=== PATIENT | male | born 1975 | race Caucasian/White ===

== ENCOUNTER 2016-03-01 05:58 | Day surgery (SDC) | payer OTHER ==
[2016-03-01] MEDS ORDERED: Lactated Ringers 1,000 ML IV SCH (06:30)
[2016-03-01] MEDS ORDERED: DIPRIVAN 200 MG/20 ML IV ONE (08:00)
[2016-03-01] MEDS ORDERED: Ketamine HCl 50 MG/ML IV ONE (08:00)
[2016-03-01 08:29] VITALS: O2SAT 98
[2016-03-01 08:34] VITALS: BP 121/74; PULSE 63
--- NOTE | 2016-03-01 10:43 | OP ---
SURGERY DATE/TIME: 03/01/2016 0657 PREOPERATIVE DIAGNOSIS: Gastroesophageal reflux disease. POSTOPERATIVE DIAGNOSIS: Moderate gastritis. PROCEDURE: Esophagogastroduodenoscopy with biopsy. SURGEON: Dr. Adams. ANESTHESIA: Medications were given by the anesthesia department. BRIEF HISTORY: The patient is a 40 year old white male patient presenting now for epigastric pain. The patient reports he had the pain despite taking proton pump inhibitor medication for several weeks. The patient was felt the need to have endoscopic evaluation. He was appraised of the risks of the procedure including the risk of perforation, phlebitis, untoward reaction to medication, bleeding, and missed lesions. The patient verbalized his understanding and desired to have the procedure performed. DESCRIPTION OF PROCEDURE: The patient was given the medications by the anesthesia department. He had continuous pulse oximetry, ECG monitoring, intermittent blood pressure monitoring and tidal CO2 monitoring during the examination. He was placed in the left lateral decubitus position. A bite block was placed and the flexible Olympus gastroscope was used to intubate the oropharynx. A view of the esophagus was developed which appeared to be normal throughout its length. The stomach was entered where normal gastric rugal folds were seen and these distended nicely with insufflation of air. The scope was passed along the greater curvature of the stomach to the antrum. There were patchy areas of erythema but no erosions or ulcerations. The pylorus was encountered and intubated. The duodenum was inspected and found to be normal. The scope is then withdrawn towards the stomach. Again, a retroflex view was obtained of the lesser curvature, fundus and cardia regions of the stomach and these appeared normal. The scope was then redirected towards the gastric antrum and biopsies were obtained to rule out the presence of Helicobacter pylori-type organisms. The scope was then removed from the patient who tolerated the procedure well and was sent back to outpatient recovery in good condition.
== END 2016-03-01 08:20 | disposition home or self-care (01) ==
LOC: SDC 05:58
PROVIDERS: ATTEND Family Medicine
PROC: 0DB68ZX Excision of Stomach, Via Natural or Artificial Opening Endoscopic, Diagnostic (ICD-10-PCS; principal; 2016-03-01)
DX: K29.70 Gastritis, unspecified, without bleeding (principal); K21.9 Gastro-esophageal reflux disease without esophagitis
CPT/HCPCS: 00740; 36415; 88305; 88312; J2704

== ENCOUNTER 2016-08-05 05:54 | Day surgery (SDC) | payer OTHER ==
[2016-08-05] MEDS ORDERED: Lactated Ringers 1,000 ML IV ONE (06:43)
[2016-08-05] MEDS ORDERED: Lactated Ringers 1,000 ML IV SCH (07:00)
[2016-08-05] MEDS ORDERED: DIPRIVAN 200 MG/20 ML IV ONE (08:00)
[2016-08-05] MEDS ORDERED: Ketamine HCl 50 MG/ML IV ONE (08:00)
[2016-08-05] MEDS ORDERED: Versed 2 MG/2 ML Injection IV ONE (08:00)
[2016-08-05] MEDS ORDERED: solu-MEDROL 125 MG IV SCH (08:30)
--- NOTE | 2016-08-05 09:27 | OP ---
SURGERY DATE/TIME: 08/05/2016 0723 PREOPERATIVE DIAGNOSIS: Abdominal pain. POSTOPERATIVE DIAGNOSIS: Crohn's colitis. PROCEDURE: Colonoscopy with biopsy. SURGEON: Dr. Adams. ANESTHESIA: MAC. Medications given by anesthesia department. HISTORY: The patient is a 40 year-old white male patient presenting now for colonoscopic evaluation due to abdominal pain. The patient reports two months ago he had an upper endoscopy which was essentially normal but he persisted to have abdominal pain. He was felt to need to have endoscopic evaluation of the colon. He was appraised of the risks of the procedure including the risk of perforation, phlebitis, untoward reaction to medication, bleeding, and missed lesions. The patient verbalized his understanding and desired to have the procedure performed. DESCRIPTION OF PROCEDURE: The patient was given the medications by the anesthesia department. He had continuous pulse oximetry, ECG monitoring, intermittent blood pressure monitoring and tidal CO2 monitoring during the examination. He was placed in the left lateral decubitus position. A digital rectal examination was performed and revealed normal anal sphincter tone and no masses and normal prostate. The flexible Olympus pediatric colonoscope was used to intubate the rectum. A view of the colon was developed sequentially to the cecum including a short distance into the terminal ileum. Upon insertion and withdrawal, including a retroflex view in the rectum, there was noted a beefy red appearance and small aphthous ulcers in the terminal ileum. The colon appeared to be normal. Biopsies were obtained in the terminal ileum to confirm the presence of inflammatory bowel disease. The scope was removed from the patient who tolerated the procedure well and was sent back to OP recovery in good condition. The prep was noted to be fair.
[2016-08-05 10:07] VITALS: BP 131/71; PULSE 72; O2SAT 98
== END 2016-08-05 09:00 | disposition home or self-care (01) ==
LOC: SDC 05:54 → EDSTATUS 14:27
PROVIDERS: ATTEND Family Medicine
PROC: 0DBB8ZX Excision of Ileum, Via Natural or Artificial Opening Endoscopic, Diagnostic (ICD-10-PCS; principal; 2016-08-05)
DX: K50.10 Crohn's disease of large intestine without complications (principal); K52.89 Other specified noninfective gastroenteritis and colitis
CPT/HCPCS: 00810; 36415; 88305; J2250; J2704; J2930

== ENCOUNTER 2017-06-12 10:54 | Day surgery (SDC) | payer OTHER ==
--- NOTE | 2017-06-12 08:32 | HP ---
DATE OF SURGERY: 06/12/2017 HISTORY OF PRESENT ILLNESS: The patient is a 41 year-old with history of benign biopsy of the pancreas x2, question of microlithiasis according to Dr. Aguilar. Given these findings recommended cholecystectomy. He has had some nausea, vomiting, dry heaves worse with spicy foods and some epigastric discomfort some loose stools after eating at times. PAST MEDICAL HISTORY: The patient denied any chronic illnesses. PAST SURGICAL HISTORY: Both shoulder surgeries, left hand surgery also right little finger surgery. MEDICATIONS: None on a regular basis. ALLERGIES: NKDA. NO SENSITIVIES. FAMILY HISTORY: Negative for inflammatory bowel disease or sprue. SOCIAL HISTORY: No smoking or alcohol abuse. REVIEW OF SYSTEMS: Twelve systems reviewed per admission assessment. No chest pain or palpitations other systems negative or noncontributory as above and per preadmission questionnaire. PHYSICAL EXAMINATION: GENERAL: No acute distress. HEENT: Sclerae nonicteric. NECK: No JVD. CHEST: Clear to auscultation. CVS: Regular rate and rhythm. ABDOMEN: Soft, mild tenderness epigastrium. No peritoneal signs. EXTREMITIES: No significant edema. NEURO: Alert, oriented, moving extremities symmetrically. No gross motor deficits noted. IMPRESSION: Question microlithiasis, question symptomatic biliary colic. Dr. Aguilar has done endoscopic ultrasound, biopsy of pancreas in the past. He recommends cholecystectomy. Risks and benefits explained in detail to the patient including but not limited to bleeding or infection, risk of trocar injury or hernia, small risk of bowel, bladder or blood vessel injury, small risk of bile leak, bile duct injury, retained stone or sludge possibly requiring further procedure either open or ERCP, general risk of anesthesia, deep venous thrombosis, pulmonary embolism, pneumonia, perioperative risk of aches, pains, bloating, constipation and/or loose stools possibly even chronic in nature. He also understands that there is possibility that this procedure may not improve his symptoms that he may need further work up, testing or treatment per Dr. Aguilar. He understands and agrees to the planned procedure, will proceed with laparoscopic cholecystectomy with possible open as an outpatient.
[~2017-06-12 10:54] MED LIST: Lactated Ringers 1,000 ML IV ONE; Lactated Ringers 1,000 ML IV SCH; Sensorcaine 0.25% 10 ML ONE
[2017-06-12] MEDS ORDERED: TORAdol 30 mg Injection IJ ONE (10:55)
[2017-06-12] MEDS ORDERED: SUBLIMAZE 100 MCG/2 ML IV ONE (10:55)
[2017-06-12] MEDS ORDERED: DIPRIVAN 200 MG/20 ML IV ONE (10:55)
[2017-06-12] MEDS ORDERED: Versed 2 MG/2 ML Injection IV ONE (10:55)
[2017-06-12] MEDS ORDERED: BRIDION 200MG/2ML IV ONE (10:55)
[2017-06-12] MEDS ORDERED: Zofran 4 MG/2 ML VIAL IV ONE (10:55)
[2017-06-12] MEDS ORDERED: Zemuron 100 MG/10 ML IJ ONE (10:55)
[2017-06-12] MEDS ORDERED: Decadron 4 MG INJ IV ONE (10:55)
[2017-06-12] MEDS ORDERED: SUBLIMAZE 250 MCG/5 ML IJ ONE (10:55)
[2017-06-12] MEDS ORDERED: MEFOXIN 2 GM PREMIX** 2 GM/50 ML ML IV SCH (11:00)
[2017-06-12 15:45] VITALS: O2SAT 96
[2017-06-12 15:52] VITALS: BP 134/64; PULSE 67
--- NOTE | 2017-06-13 08:21 | OP ---
SURGERY DATE/TIME: 06/12/2017 1305 PREOPERATIVE DIAGNOSIS: Symptomatic biliary colic, question of microlithiasis by Dr. Aguilar with endoscopic ultrasound. POSTOPERATIVE DIAGNOSIS: Symptomatic biliary colic, question of microlithiasis by Dr. Aguilar with endoscopic ultrasound. Mild chronic cholecystitis. PROCEDURE: Laparoscopic cholecystectomy. SURGEON: Dr. Vaibhav Matta. PROGRAMMING DEVELOPMENT PROJECT MANAGER: Rey Shankar, Medical Student III. ANESTHESIA: General. ESTIMATED BLOOD LOSS: Minimal. INDICATIONS: As noted above. Risks and benefits explained in detail but not limited to and consent obtained. DESCRIPTION OF PROCEDURE AND FINDINGS: The patient was taken to the OR. General anesthesia induced. Abdomen prepped and draped in the usual sterile fashion. After official time out and no disagreement with planned procedure, a transverse incision made at the supraumbilical area. Fascia grasped and pulled upward. Veress needle inserted and tested with saline. Pneumoperitoneum accomplished insufflating opening pressure of 0-15. An 11 mm bladeless port and camera inserted without difficulty followed by two - 5 mm right upper quadrant ports and 5 mm epigastric port. The gallbladder had some mild chronic inflammatory reaction. Dissecting carried posterior, lateral to anterior fashion. Slowly and carefully the dense and chronic inflammatory reaction cystic duct and infundibular junction slowly and carefully well skeletonized as well as the main cystic artery until the critical view obtained both anteriorly and posteriorly. Once this was accomplished again it had quite a bit of chronic inflammatory reaction around this area. Once the critical view was obtained both anteriorly and posteriorly the cystic artery and cystic duct were then clipped x3 and divided in usual fashion. The gallbladder slowly and carefully dissected free from its dense almost attachments to the liver bed staying directly on the gallbladder wall clipping additional oozing side branches off the cystic artery as necessary directly on the gallbladder wall. Just prior to releasing from final attachments to the anterior edge of the liver the liver re-inspected. Clips are noted in place in cystic duct and cystic artery stumps. There is no sign of any active bleeding or bile leakage. It was felt there is no benefit from drain placement. Gallbladder released from final attachments to the anterior edge of the liver pulled up into the 10/11 port site supraumbilical port and mobilized up out the port wound and passed off. The liver bed is re-inspected. Clips noted in place in cystic duct and cystic artery stumps. There were no signs of any active bleeding or bile leakage. It was felt there is no benefit from drain placement. The 11 mm port site closed with puncture closure device with #1 Vicryl under direct vision of the camera. Pneumoperitoneum decompressed. The wound was irrigated out. Skin incision closed with 4-0 Vicryl. Steri-Strips and sterile dressing applied. 0.25% Marcaine local injected along the skin incision fascial defect. The patient tolerated the procedure well. There were no immediate complications. Findings discussed with the family out in the waiting area.
== END 2017-06-12 16:10 | disposition home or self-care (01) ==
LOC: SDC 10:54
PROVIDERS: ATTEND Surgery
DX: K81.1 Chronic cholecystitis (principal)
CPT/HCPCS: 88304; 94250; J0694; J1100; J1885; J2250; J2405; J2704; J3010